=== PATIENT | male | born 1995 | race Two or more races ===

== ENCOUNTER 2021-02-14 19:54 | Emergency (ER) | payer BC ==
[~2021-02-14] VITALS: Ht 180.3 cm; Wt 83.9 kg
[2021-02-14 20:08] VITALS: BP 143/76
[2021-02-14] MEDS ORDERED: IBUPROFEN 600 MG TABLET ONE (20:44)
[2021-02-14] MEDS ORDERED: IBUPROFEN 600 MG TABLET PO ONE (21:00)
--- NOTE | 2021-02-14 21:02 | NUR ---
Patient does not wish to proceed with medical care recommended by Dr. Villa Hernandez. Patient given information related to possible complications, up to and including , which could occur as a result of leaving the hospital at this time. Patient verbalizes understanding of risks involved due to leaving against medical advice. Patient has signed AMA form.
--- NOTE | 2021-02-14 21:03 | NUR ---
Pt ambulatory with a steady gait
== END 2021-02-14 21:03 | disposition left against medical advice (07) ==
LOC: ER 19:58
DX: R50.9 Fever, unspecified (principal); R10.13 Epigastric pain; R11.2 Nausea with vomiting, unspecified